=== PATIENT | male | born 1975 | race Caucasian/White ===

== ENCOUNTER → 2017-11-28 08:17 | Outpatient (CLI) | payer OTHER, SELFPAY ==
[2017-11-28 10:11] LABS: Absolute Lymphocyte Count 2.01 X10^3/ul (0.83-4.51); Absolute Neutrophil Count 3.9 X10^3/uL (2.0-7.7); Basophil# 0.02 X10^3/uL; Basophil% 0.3 % (0-1); Eosinophil# 0.13 X10^3/uL; Hematocrit 46.2 % (40-54); Hemoglobin 15.9 g/dl (13.0-16.5); Lymphocyte # 2.01 X10^3/ul (4.0); Lymphocyte % 30.8 % (19-41); Mean Corp Hgb Conc 34.4 g/gl (32-36); Mean Corpuscular Hgb 30.8 pg (27.0-32.0); Mean Corpuscular Volume 89.4 fL (80-94); Mean Platelet Vol. 9.5 fl (6.2-12.0); Monocyte# 0.42 X10^3/uL; Monocyte% 6.4 % (0-10); Neutrophil # 3.93 X10^3/uL (2.7-7.7); Neutrophil % 60.2 % (47-70); Platelet Count 197 K/mm3 (150-450); RBC Distribution Width CV 12.8 % (11.6-14.6); RBC Distribution Width SD 41.3 fl (35.1-43.9); Red Blood Count 5.17 M/mm3 (4.6-6.2); White Blood Count 6.5 K/mm3 (4.4-11.0)
[2017-11-28 10:15] LABS: POSITIVE COUNT NO; POSITIVE DIFFERENTIAL NO; POSITIVE MORPHOLOGY NO
[2017-11-28 10:22] LABS: Hemoglobin A1c 5.6 % (4.2-6.3)
[2017-11-28 10:30] LABS: ALB/GLOB Ratio 1.1 RATIO (0.9-2.4); AST(SGOT) 21 U/L (15-37); Alanine Aminotransfer ALT/SGPT 45 U/L (16-61); Albumin, Serum 3.8 g/dL (3.2-5.0); Alkaline Phosphatase 64 U/L (45-117); Anion Gap 10 (5-15); BUN 12 mg/dL (7-18); BUN/Creat Ratio 15.8 RATIO (10-20); Chloride 107 mmol/L (98-107); Cholesterol 192 mg/dL (200); Creatinine, Serum 0.76 mg/dL (0.70-1.30); EST Glomerular Filtration Rate 121 mL/min (>60); Est Glom Filt Rate - Afr Amer 146 mL/min (>60); Globulin 3.4 g/dL (2.2-4.2); Glucose 101 mg/dL (74-106); High Density Lipoprotein 20 mg/dL; PSA,Total - Annual Screen 1.92 ng/mL (0.00-4.00); Potassium 3.9 mmol/L (3.5-5.1); Protein, Total 7.2 g/dL (6.4-8.2); Sodium Level 142 mmol/L (136-145); T4 Total, Thyroxin 8.8 ug/dL (4.5-12.1); Thyroid Stim Hormone (TSH) 1.32 uIU/mL (0.358-3.74); Triglycerides 459 mg/dL
[2017-11-28 10:43] LABS: Vitamin B12 368 pg/mL (211-911)
== END ==
PROVIDERS: Family Provider Family Medicine; PCP Family Medicine; Referring Provider Physician Assistant; Visit Provider Physician Assistant
DX: E66.9 Obesity, unspecified (principal)
CPT/HCPCS: 36415; 80053; 80061; 82607; 83036; 84153; 84436; 84443; 85025; G0103

== ENCOUNTER → 2020-03-22 10:21 | Outpatient (CLI) | payer OTHER, SELFPAY ==
[2020-02-25 14:20] VITALS: BMI 33.0
--- NOTE | 2020-03-22 10:33 | STEWCON_ITS ---
Reason For Study: Chest Pain Stress Results Protocol: Brandt Protocol WITH DEFINITY Maximum Predicted HR: 178 bpm Target HR: 151 bpm % Maximum Predicted HR: 88 % DurationHeart Rate Stage (mm:ss) (bpm) BP Comment Baseline 80 126/84No Chest Pain; 4 ML Diluted Definity Brandt Protocol Stage I 3:00 108 134/72No Chest Pain Brandt Protocol Stage II 3:00 118 144/86No Chest Pain Brandt Protocol Stage III 3:00 142 170/76Mild Chest Pressure; Mild Dyspnea Brandt Protocol Stage IV 0:31 157 / Mild Chest Pressure; Moderate Dyspnea Recovery 94 130/70No Chest Pain Stress Duration: 9:31 mm:ss Maximum Stress HR: 157 bpm METS: 11 Baseline Echocardiogram Findings Stress Echo Wall motion Data Resting WM Intermediate WM Stress WM Resting Wall Motion Wall Motion Stress All segments Normal. All segments Hyperkinetic. Ejection Fraction 55 %. Ejection Fraction 70 %. Stress Results Heart rate response: Appropriate Blood pressure response: Normal resting blood pressure-appropriate response Arrhythmias: None Functional capacity: Good Stopped secondary to: Mild chest discomfort/dyspnea. EKG Data Baseline ECG: Normal sinus rhythm. Peak exercise ECG: Somatic/motion artifact with no obvious ECG changes. Symptoms with Stress The patient noted mild chest discomfort/pressure at peak exercise with subsequent spontaneous resolution in recovery. Interpretation Summary Contrast injection performed 1. Negative (adequate) stress echocardiogram Ordering Physician: Amelia Allen M.D. Referring Physician: Duke Unger Performed By: Patty Kraus RDCS
== END ==
PROVIDERS: PCP Family Medicine; Visit Provider Family Medicine
DX: R07.9 Chest pain, unspecified (principal)
CPT/HCPCS: 93017; 93350; Q9957; A4216; C8928

== ENCOUNTER → 2021-01-11 10:51 | Outpatient (CLI) | payer OTHER, SELFPAY | PROVIDERS: PCP Family Medicine; Visit Provider Family Medicine | DX: Z23 Encounter for immunization (principal) | CPT/HCPCS: 0004A; 91300 ==

== ENCOUNTER → 2021-12-15 | Outpatient (CLI) | payer OTHER, SELFPAY ==
--- NOTE | 2021-12-15 10:43 | RAD_ITS ---
STUDY: X-RAY CHEST REASON FOR EXAM: Male, 46 years old. CHRONIC COUGH TECHNIQUE: PA and lateral views of the chest. COMPARISON: 2016 FINDINGS: The lungs are clear and expanded. There is no demonstrated pleural abnormality. Normal size heart. Normal mediastinum and maria guadalupe. Normal visualized pulmonary arteries. Normal visualized aortic arch and descending thoracic aorta. Normal visualized thoracic spine. Normal visualized ribs, clavicles, and shoulders. There is no demonstrated abnormality of the visualized soft tissue structures of the upper abdomen. RAD/Chest PA and Lateral IMPRESSION: Normal x-ray examination of the chest. Electronically Signed: Chandana Obrien MD at 13:22 EDT ,
[2021-12-15 12:50] LABS: Erythrocyte Sedimentation Rate 7 mm/hr (0-20)
[2021-12-15 12:53] LABS: Absolute Lymphocyte Count 2.71 X10^3/uL (0.83-4.51); Absolute Neutrophil Count 5.8 X10^3/uL (2.0-7.7); Basophil# 0.06 X10^3/uL; Basophil% 0.6 % (0-1); Eosinophil# 0.14 X10^3/uL; Eosinophils% 1.5 % (0-5); Hematocrit 46.9 % (40-54); Hemoglobin 16.9 g/dL (13.0-16.5); Lymphocyte # 2.71 X10^3/ul (0.83-4.51); Mean Corpuscular Hgb 31.9 pg (27.0-32.0); Mean Corpuscular Volume 88.5 fL (80-94); Mean Platelet Vol. 9.5 fl (6.2-12.0); Monocyte# 0.65 X10^3/uL; NRBC Flagged by Analyzer 0 % (0-5); Neutrophil # 5.75 X10^3/uL (2.7-7.7); Neutrophil % 61.5 % (47-70); Platelet Count 278 K/mm3 (150-450); RBC Distribution Width CV 12.7 % (11.6-14.6); RBC Distribution Width SD 41.4 fl (35.1-43.9); White Blood Count 9.4 K/mm3 (4.4-11.0)
[2021-12-15 13:23] LABS: ALB/GLOB Ratio 1.2 RATIO (0.9-2.4); AST(SGOT) 28 U/L (15-37); Alanine Aminotransfer ALT/SGPT 49 U/L (16-61); Albumin, Serum 3.9 g/dL (3.2-5.0); Alkaline Phosphatase 74 U/L (45-117); Anion Gap 6 (5-15); BUN 11 mg/dL (7-18); BUN/Creat Ratio 13.6 RATIO (10-20); Chloride 105 mmol/L (98-107); Creatinine, Serum 0.81 mg/dL (0.70-1.30); EST Glomerular Filtration Rate 110 mL/min (>60); Est Glom Filt Rate - Afr Amer 133 mL/min (>60); Globulin 3.3 g/dL (2.2-4.2); Glucose 100 mg/dL (74-106); Potassium 4.1 mmol/L (3.5-5.1); Protein, Total 7.2 g/dL (6.4-8.2); Sodium Level 136 mmol/L (136-145)
== END | disposition home or self-care (01) ==
LOC: MTLAB 10:40
PROVIDERS: PCP Family Medicine; Referring Provider Family Medicine; Visit Provider Family Medicine
DX: R05.3 Chronic cough (principal)
CPT/HCPCS: 36415; 71046; 80053; 85025; 85652

== ENCOUNTER 2022-04-03 10:00 | Outpatient (RCR) | payer OTHER, SELFPAY | END 2022-04-10 23:59 | LOC: NS 10:00 | PROVIDERS: PCP Family Medicine; Visit Provider Family Medicine | DX: Z71.3 Dietary counseling and surveillance (principal); E66.9 Obesity, unspecified; Z68.34 Body mass index [BMI] 34.0-34.9, adult; G47.33 Obstructive sleep apnea (adult) (pediatric) | CPT/HCPCS: 97802 ==

== ENCOUNTER → 2022-05-08 | Outpatient (CLI) | payer OTHER, SELFPAY ==
--- NOTE | 2022-05-08 10:38 | PFTCOMP ---
COMPLETE PULMONARY FUNCTION TEST INTERPRETATION Brief HPI: Patient is a 46-year-old male, currently under the care of Dr. Moore, who presents to [facility] for complete pulmonary function tests secondary to diagnosis of chronic cough. Respiratory therapist reports good effort and reproducible results. Interpretation: Forced expiration spirometry shows no large airways obstructive ventilatory defect with an FEV1 of 95% predicted. There is no significant bronchodilator response by strict ATS criteria. Spirograms are of poor quality and do not plateau after 3 to 5 seconds of exhalation, likely underestimating FVC. The respiratory flow volume loop shows a normal pattern. Lung volumes by body plethysmography show a normal total lung capacity at 6.58 L, 102% predicted. All other lung volumes are within normal limits. Diffusion capacity by carbon monoxide is normal at 115% predicted. The airway resistance is normal. No previous pulmonary function tests were available for review. Impression: Grossly normal pulmonary function testing. Consider bronchoprovocation if asthma is suspected as an etiology to chronic cough.
== END | disposition home or self-care (01) ==
LOC: PSN 08:30
PROVIDERS: PCP Family Medicine; Visit Provider Family Medicine
DX: R05.3 Chronic cough (principal)
CPT/HCPCS: 94060; 94726; 94729

== ENCOUNTER → 2022-12-24 | Outpatient (CLI) | payer OTHER, SELFPAY ==
[2022-12-24 15:36] LABS: Absolute Lymphocyte Count 2.34 X10^3/uL (0.83-4.51); Absolute Neutrophil Count 3.4 X10^3/uL (2.0-7.7); Basophil# 0.04 X10^3/uL; Basophil% 0.6 % (0-1); Eosinophil# 0.15 X10^3/uL; Eosinophils% 2.2 % (0-5); Hemoglobin 16.4 g/dL (13.0-16.5); Lymphocyte # 2.34 X10^3/ul (0.83-4.51); Lymphocyte % 34.7 % (19-41); Mean Corp Hgb Conc 34.2 g/dL (32-36); Mean Corpuscular Hgb 30.6 pg (27.0-32.0); Mean Corpuscular Volume 89.6 fL (80-94); Mean Platelet Vol. 9.2 fl (6.2-12.0); Monocyte# 0.81 X10^3/uL; NRBC Flagged by Analyzer 0 % (0-5); Neutrophil # 3.37 X10^3/uL (2.7-7.7); Neutrophil % 49.9 % (47-70); Platelet Count 230 K/mm3 (150-450); RBC Distribution Width CV 12.7 % (11.6-14.6); RBC Distribution Width SD 41.4 fl (35.1-43.9); Red Blood Count 5.36 M/mm3 (4.6-6.2); White Blood Count 6.8 K/mm3 (4.4-11.0)
[2022-12-24 15:47] LABS: Erythrocyte Sedimentation Rate 12 mm/hr (0-20)
[2022-12-24 15:52] LABS: Rheumatoid Factor < 10.0 IU/mL (<15)
[2022-12-26 12:09] LABS: ANTINUCLEAR ANTIBODIES DIRECT Negative (Negative)
== END | disposition home or self-care (01) ==
LOC: MTLAB 13:08
PROVIDERS: PCP Family Medicine; Referring Provider Family Medicine; Visit Provider Family Medicine
DX: L30.9 Dermatitis, unspecified (principal)
CPT/HCPCS: 36415; 85025; 85652; 86038; 86140; 86431

== ENCOUNTER → 2023-08-22 | Outpatient (CLI) | payer OTHER, SELFPAY ==
[2023-08-22 10:04] LABS: Absolute Lymphocyte Count 2.35 X10^3/uL (0.83-4.51); Absolute Neutrophil Count 4.3 X10^3/uL (2.0-7.7); Basophil# 0.06 X10^3/uL; Basophil% 0.8 % (0-1); Eosinophil# 0.13 X10^3/uL; Eosinophils% 1.8 % (0-5); Hemoglobin 16.3 g/dL (13.0-16.5); Lymphocyte # 2.35 X10^3/ul (0.83-4.51); Lymphocyte % 32.2 % (19-41); Mean Corp Hgb Conc 34.7 g/dL (32-36); Mean Corpuscular Volume 86.4 fL (80-94); Mean Platelet Vol. 9.1 fl (6.2-12.0); Monocyte# 0.45 X10^3/uL; Monocyte% 6.2 % (0-10); NRBC Flagged by Analyzer 0 % (0-5); Neutrophil # 4.28 X10^3/uL (2.7-7.7); Neutrophil % 58.6 % (47-70); Platelet Count 249 K/mm3 (150-450); RBC Distribution Width CV 12.7 % (11.6-14.6); RBC Distribution Width SD 39.4 fl (35.1-43.9); Red Blood Count 5.44 M/mm3 (4.6-6.2); White Blood Count 7.3 K/mm3 (4.4-11.0)
[2023-08-22 10:24] LABS: ALB/GLOB Ratio 1.1 RATIO (0.9-2.4); AST(SGOT) 24 U/L (15-37); Alanine Aminotransfer ALT/SGPT 45 U/L (16-61); Albumin, Serum 3.7 g/dL (3.2-5.0); Alkaline Phosphatase 92 U/L (45-117); Anion Gap 5 (5-15); BUN 8 mg/dL (7-18); BUN/Creat Ratio 9.1 RATIO (10-20); Calcium,Total 9.6 mg/dL (8.5-10.1); Chloride 106 mmol/L (98-107); Cholesterol 213 mg/dL (200); Creatinine, Serum 0.88 mg/dL (0.70-1.30); EST Glomerular Filtration Rate 99 mL/min (>60); Est Glom Filt Rate - Afr Amer 120 mL/min (>60); Globulin 3.4 g/dL (2.2-4.2); Glucose 131 mg/dL (74-106); High Density Lipoprotein 28 mg/dL; Potassium 4.2 mmol/L (3.5-5.1); Protein, Total 7.1 g/dL (6.4-8.2); Sodium Level 136 mmol/L (136-145); Triglycerides 236 mg/dL; Very Low Density Lipoprotein 47 mg/dL (5-40)
[2023-08-26 19:13] LABS: Hemoglobin A1c 5.8 % (3.8-5.6)
== END | disposition home or self-care (01) ==
LOC: MFPLAB 09:12
PROVIDERS: PCP Family Medicine; Visit Provider Family Medicine
DX: R73.09 Other abnormal glucose (principal); I10 Essential (primary) hypertension; E66.9 Obesity, unspecified
CPT/HCPCS: 36415; 80053; 80061; 83036; 85025

== ENCOUNTER → 2023-12-24 | Outpatient (CLI) | payer OTHER, SELFPAY ==
--- NOTE | 2023-12-24 15:50 | RAD_ITS ---
INDICATION: radiculopathy left arm pain, numbness EXAMINATION/TECHNIQUE: X-RAY - XR Spine Cervical 4 or 5 Views COMPARISON: No relevant prior comparison study available FINDINGS: The vertebral bodies are normal in height. No definite fracture demonstrated. No subluxation. C1-2 alignment is maintained. Straightening of the normal curvature. Mild disc space narrowing with posterior osteophytes C5-6 with possibly slight encroachment on the left neural foramen. Prevertebral soft tissues appear unremarkable. RAD/Cerv Spine 4 or 5 Views IMPRESSION: No evidence of fracture or subluxation. Mild degenerative discogenic disease C5-C6 with slight left neural foraminal encroachment. MRI may be helpful for further evaluation. Electronically Signed: Lauren Cruz MD at 8:17 EST ,
== END | disposition home or self-care (01) ==
LOC: MTRAD 15:46
PROVIDERS: PCP Family Medicine; Referring Provider Family Medicine; Visit Provider Family Medicine
DX: M54.10 Radiculopathy, site unspecified (principal)
CPT/HCPCS: 72050

== ENCOUNTER → 2024-01-15 | Outpatient (CLI) | payer OTHER, SELFPAY ==
--- NOTE | 2024-01-15 12:49 | NEURO_ITS ---
NCS and/or EMG Patient Report Ordering Doctor: Gavino Moore DATE OF SERVICE: 01/15/24 Andrew presents with complaints of in the wrist bilaterally, worse on the left side. He reports intermittent numbness. Electrodiagnostic findings: Median motor nerve demonstrates prolonged latency bilaterally with normal amplitudes and reduced conduction velocities. Ulnar motor response is within normal limits bilaterally. Normal median and ulnar F?waves. Prolonged left and right median sensory latencies at the wrist. N ormal ulnar and radial sensory responses. Needle EMG testing was performed upper limbs. All muscles tested showed no evidence of denervation with normal motor unit action potentials Electrodiagnostic impression: This is an abnormal study in the upper limbs 1. Electrodiagnostic findings suggestive of bilateral median mononeuropathy. This is consistent with a mild right carpal tunnel syndrome and a moderate left carpal tunnel syndrome. Multi Select Codes Neurology Neurology Interp Codes: 94465-46 Musc test done w/n test comp (interp) (2) and 03473-25 Nrv cndj test 9-10 studies (interp)
== END | disposition home or self-care (01) ==
LOC: PSN 09:54
PROVIDERS: PCP Family Medicine; Referring Provider Family Medicine; Visit Provider Family Medicine
DX: M54.10 Radiculopathy, site unspecified (principal)
CPT/HCPCS: 95886; 95911

== ENCOUNTER → 2024-01-20 | Outpatient (CLI) | payer OTHER, SELFPAY ==
--- NOTE | 2024-01-20 09:30 | MRI_ITS ---
HISTORY: L and gt; R radicular pain; hx of remote neck fracture and surgery; co. TECHNIQUE: Multiplanar and multisequence MR images of the cervical spine were obtained without contrast. 247 images. COMPARISON: XR 01/02/2024. FINDINGS: VERTEBRAE: Vertebral body heights maintained. Mild degenerative changes. No significant bone marrow signal abnormality. VERTEBRAL ALIGNMENT: Straightening of the cervical lordosis without anterior or posterior subluxation. SPINAL CORD: Cervical cord signal and morphology within normal limits. SOFT TISSUES: No prevertebral fluid collection. INTERVERTEBRAL DISCS: C2-3: Mild posterior disc bulge osteophyte complex with uncovertebral and facet arthropathy resulting in minimal narrowing of the thecal sac and mild left foraminal narrowing C3-4: No significant posterior disc protrusion, central canal stenosis, or foraminal narrowing. C4-5, C5-6: Mild posterior disc bulge osteophyte complexes with uncovertebral and facet arthropathy resulting in mild central canal stenosis and bilateral foraminal narrowing. C6-7: Mild posterior disc protrusion with annular fissure resulting in mild central canal stenosis. No significant foraminal narrowing. C7-T1: No significant posterior disc protrusion, central canal stenosis, or foraminal narrowing. MRI/Spine Cervical (Routine) IMPRESSION: Mild degenerative disc disease of the cervical spine as above. Electronically Signed: Barbara Power MD at 13:27 EST ,
== END | disposition home or self-care (01) ==
PROVIDERS: PCP Family Medicine; Referring Provider Family Medicine; Visit Provider Family Medicine
DX: M54.10 Radiculopathy, site unspecified (principal); Z87.81 Personal history of (healed) traumatic fracture
CPT/HCPCS: 72141

== ENCOUNTER → 2024-04-03 | Outpatient (CLI) | payer OTHER, SELFPAY ==
--- NOTE | 2024-04-03 08:04 | ECHOCS_ITS ---
Reason For Study : MINE Procedure This was a 2D Doppler, Color Flow transthoracic echocardiogram. The study was technically difficult. Unable to obtain RV strain due to suboptimal images. Exam performed in department. Left Ventricle Normal LV size. The estimated ejection fraction is 60 %. No evidence for diastolic dysfunction. No regional wall motion abnormalities noted. Right Ventricle Normal RV size. Normal systolic function. Atria The left and right atria are normal. Mitral Valve The mitral valve is structurally normal. No prolapse or stenosis seen. Tricuspid Valve Normal tricuspid valve. Trivial tricuspid valve insufficiency. Unable to estimate RV systolic pressure due to insufficient tricuspid regurgitant envelope. Aortic Valve Trisinus/trileaflet aortic valve. Pulmonic Valve Normal pulmonic valve. Trivial pulmonic valve insufficiency. Great Vessels Normal sized aortic root. Pericardium/Pleural No pericardial effusion. Medication 22 gauge I.V. with prn adaptor inserted into right arm. Diluted definity 2ml given slow IV push to enhance endocardial definition. MMode/2D Measurements & Calculations Ao root diam: 3.3 cm EDV(sp4-el): 124.7 ml EDV(MOD-sp4): 119.2 ml ESV(MOD-sp4): 47.1 ml ESV(sp4-el): 47.5 ml LA A4 area: 16.9 cm?? FS: 31.3 % IVSd: 1.04 cm LAV(MOD-sp2): 36.3 ml LAV(MOD-bp): 42.4 ml LA dimension(2D): 3.6 cm LVAd ap4: 35.9 cm?? LAV(MOD-sp4): 41.5 ml LAV(MOD-bp) Indexed: 19.9 ml/m?? LVIDd: 4.8 cm LVLd ap4: 8.7 cm LVIDs: 3.3 cm LVAs ap4: 20.3 cm?? LVPWd: 1.06 cm LVLs ap4: 7.4 cm RVDd: 3.3 cm RA A4 area: 15.2 cm?? Doppler Measurements & Calculations Ao max P.3 mmHg Ao V2 max: 103.9 cm/sec E/E' med: 8.6 E/E' lat: 7.7 LV V1 max: 90.6 cm/sec LV V1 max P.3 mmHg Lat Peak E' Bandar: 10.8 cm/sec Med Peak E' Bandar: 9.7 cm/sec MV A max bandar: 71.5 cm/sec MV E max bandar: 83.1 cm/sec MV dec time: 0.25 sec PA V2 max: 121.1 cm/sec PA max P.9 mmHg TR max bandar: 150.6 cm/sec TR max P.1 mmHg Other Measurements & Calculations EF(MOD-sp4): 60.5 % EF(sp4-el): 61.9 % MV E/A: 1.16 SV(MOD-sp4): 72.1 ml SV(sp4-el): 77.2 ml TAPSE: 1.67 cm Conclusions Contrast injection was performed. The estimated ejection fraction is 60 %. No evidence for diastolic dysfunction. Structually normal valves. Ordering Physician: Gianfranco Clement V Referring Physician: PEMA CANTRELL Performed By: Patty Kraus RDCS Electronically signed by: Kaylyn Chin MD 04/03/2024, 4: 26 PM
== END | disposition home or self-care (01) ==
PROVIDERS: PCP Family Medicine; Referring Provider Internal Medicine Pulmonary Disease; Visit Provider Internal Medicine Pulmonary Disease
DX: G47.33 Obstructive sleep apnea (adult) (pediatric) (principal); J45.40 Moderate persistent asthma, uncomplicated
CPT/HCPCS: 93306; Q9957; A4216; C8929

== ENCOUNTER → 2024-04-24 | Outpatient (CLI) | payer OTHER, SELFPAY ==
[2024-04-24 19:00] LABS: ALB/GLOB Ratio 1.5 RATIO (0.9-2.4); AST(SGOT) 37 U/L (<=37); Alanine Aminotransfer ALT/SGPT 45 U/L (<=46); Albumin, Serum 4.2 g/dL (3.5-5.0); Alkaline Phosphatase 89 U/L (40-129); Anion Gap 13 (5-15); BUN 10 mg/dL (4-19); BUN/Creat Ratio 13.4 RATIO (10-20); Calcium,Total 9.7 mg/dL (7.6-11.0); Carbon Dioxide 22.2 mmol/L (21.0-32.0); Chloride 102 mmol/L (98-108); Creatinine, Serum 0.74 mg/dL (0.70-1.20); EST Glomerular Filtration Rate 113 (>60); Globulin 2.7 g/dL (2.2-4.2); Glucose 144 mg/dL (70-99); Protein, Total 6.8 g/dL (5.9-8.4); Sodium Level 137 mmol/L (133-145); Total Bilirubin 0.26 mg/dL (0.00-1.30)
[2024-04-24 19:08] LABS: Hemoglobin A1c 6.6 % (<=5.6)
[2024-04-25 01:01] LABS: Cholesterol 192 mg/dL (<=200); High Density Lipoprotein 20 mg/dL; Low Density Lipoprotein Calc. 96 mg/dL; Triglycerides 382 mg/dL; Very Low Density Lipoprotein 76 mg/dL (5-40); cholesterol:hdl ratio screen 9.65
== END | disposition home or self-care (01) ==
LOC: MFPLAB 13:55
PROVIDERS: PCP Family Medicine; Referring Provider Family Medicine; Visit Provider Family Medicine
DX: R73.03 Prediabetes (principal)
CPT/HCPCS: 36415; 80053; 80061; 83036; 84443

== ENCOUNTER → 2024-04-27 | Outpatient (CLI) | payer OTHER, SELFPAY ==
--- NOTE | 2024-04-27 08:55 | RAD_ITS ---
PROCEDURE: CHEST PA AND LATERAL 04/27/2024 REASON FOR EXAM: COUGH TECHNIQUE: Frontal and lateral views of the chest. COMPARISON: Chest x-ray of 12/15/2021. FINDINGS: The heart size is normal. The mediastinal contour is unremarkable. The lungs are clear. The bones are unremarkable. RAD/Chest PA and Lateral IMPRESSION: No evidence of acute cardiopulmonary disease. Negative examination. Reading Location: [id number]
== END | disposition home or self-care (01) ==
LOC: MTRAD 08:50
PROVIDERS: PCP Family Medicine; Referring Provider Family Medicine; Visit Provider Family Medicine
DX: R05.3 Chronic cough (principal)
CPT/HCPCS: 71046

== ENCOUNTER 2024-05-26 14:30 | Outpatient (RCR) | payer OTHER, SELFPAY ==
--- NOTE | 2024-03-05 07:58 | HP.OTEVAL ---
Patient's Visit Information Visit Information Visit Information: CHRISTINA FLYNN is a 48 year old M, referred to Occupational Therapy by ELHAM Giron, with a diagnosis of left CTS. Date of Evaluation: 03/04/24 Occupational Therapist: ASHLEIGH Ibarra/Celso, CHT Subjective Subjective: This 48-year-old male was seen for OT eval with dx with left CTR pt states he has noticed symptoms for a while and feels he needs to work on something to decrease them. 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 pt is left-handed pt states he feels he is dropping items- pt states he does not feel the numbness of CTS but has pian on ulnar side of his wrist and he is dropping objects. 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 with ADls by d/c Goal:: Pt will demo understanding of joint protection and ergonomics when performing BADLs and IADLs by d/c Pt will demo understanding of adaptive Equipment use to decrease stress on joints to allow pt to perform BADSL and IADLS at GINA level. Goal:: Pt will demo understanding of using supportive bracing 80% of workday/ADLS to decrease stress on tendon origin to allow healing and decrease pain by end of 2nd session. Rehabilitation General Assessment: pt demo with positive symptoms of CTS and limited use of left UE due to pain and weakness. Pt demo need for skilled OT services 2-3x week for 4 weeks. Therapist ed. pt on soft tissue mobilization to decrease forearm tightness- to cont. wearing wrist brace at night and ed. pt on median nerve glides. Pt demo understanding and agree to POC. Rehabilitation Potential: Good Anticipated Interventions Anticipated Interventions: A/AAROM/PROM, Strengthening, Triggerpoint Release, Modalities, Orthoses, Joint Protection/Energy Conservation, Ergonomic Education, Education re assistive Equipment, Education re Diagnosis and Home Program Visit Plan Frequency: 2-3x /Week Duration: 4 Weeks TEXT: Thank you for the opportunity to evaluate your patient. For Medicare and Medicare HMO plans, please review the plan of care and approve it. It will need to be FAXED BACK to us at [phone] for Medicare purposes. Please let me know if there are questions or concerns regarding this plan of care. Physician Signature: Date:
--- NOTE | 2024-09-09 15:04 | HP.OT.NRP ---
Patient Information Patient Information: CHRISTINA FLYNN was seen in my office for initial evaluation on 03/04/24. The following Plan of Care was established for this patient: POC Established Initial Frequency: 2-3x /Week Initial Duration: 4 Weeks Plan: every 2 weeks PB and trigger point release of bilateral forearm Anticipated Interventions Anticipated Interventions: A/AAROM/PROM, Strengthening, Triggerpoint Release, Modalities, Orthoses, Joint Protection/Energy Conservation, Ergonomic Education, Education re assistive Equipment, Education re Diagnosis and Home Program Last Seen Last Seen: This patient was last seen in our office 05/26/24. Pertinent comments regarding their Occupational therapy will appear below: no further apts have been scheduled and due to time lapse in services pt is d/c. At this point I will be discontinuing this patient from occupational therapy. I would be happy to see this patient again in the future if found appropriate by the physician. Thank you! Otilia Riddle, OTR/L, CHT
== END 2024-05-26 19:00 | disposition home or self-care (01) ==
LOC: OT 14:30
PROVIDERS: PCP Family Medicine; Referring Provider Student in an Organized Health Care Education/Training Program; Visit Provider Student in an Organized Health Care Education/Training Program
DX: G56.02 Carpal tunnel syndrome, left upper limb (principal)
CPT/HCPCS: 97035; 97110; 97140; 97166; 97530

== ENCOUNTER → 2024-09-11 | Outpatient (CLI) | payer OTHER, SELFPAY | END | disposition home or self-care (01) | LOC: RAD 15:41 | PROVIDERS: PCP Family Medicine; Referring Provider Surgery Plastic and Reconstructive Surgery; Visit Provider Surgery Plastic and Reconstructive Surgery | DX: M25.60 Stiffness of unspecified joint, not elsewhere classified (principal) | CPT/HCPCS: 73140 ==

== ENCOUNTER → 2024-11-23 | Outpatient (CLI) | payer OTHER, SELFPAY ==
[2024-11-23 17:50] LABS: Hematocrit 43.7 % (40-54); Hemoglobin 15.2 g/dL (13.0-16.5); Immature Granulocytes Count 0.020 X10^3/uL (0.0-0.0); Mean Corp Hgb Conc 34.8 g/dL (32-36); Mean Corpuscular Volume 88.5 fL (80-94); Mean Platelet Vol. 9.4 fl (6.2-12.0); NRBC Flagged by Analyzer 0 % (0-5); Platelet Count 251 K/mm3 (150-450); RBC Distribution Width CV 12.5 % (11.6-14.6); RBC Distribution Width SD 40.6 fl (35.1-43.9); Red Blood Count 4.94 M/mm3 (4.6-6.2); White Blood Count 8.5 K/mm3 (4.4-11.0)
[2024-11-23 18:49] LABS: AST(SGOT) 29 U/L (<=37); Alanine Aminotransfer ALT/SGPT 38 U/L (<=46); Albumin, Serum 4.3 g/dL (3.5-5.0); Alkaline Phosphatase 77 U/L (40-129); Anion Gap 12 (5-15); BUN 16 mg/dL (4-19); BUN/Creat Ratio 19.6 RATIO (10-20); CRP 5.11 mg/L (0.0-3.0); Calcium,Total 10.1 mg/dL (7.6-11.0); Carbon Dioxide 22.7 mmol/L (21.0-32.0); Chloride 103 mmol/L (98-108); Cholesterol 216 mg/dL (<=200); Globulin 2.6 g/dL (2.2-4.2); Glucose 104 mg/dL (70-99); Hepatitis B Surface Antigen Nonreactive (Nonreactive); Hepatitis C Antibody Nonreactive (Nonreactive); Low Density Lipoprotein Calc. 111 mg/dL; Potassium 3.8 mmol/L (3.3-5.1); Triglycerides 376 mg/dL; Very Low Density Lipoprotein 75 mg/dL (5-40); cholesterol:hdl ratio screen 7.20
[2024-11-25 14:09] LABS: ANTINUCLEAR ANTIBODIES DIRECT Negative (Negative)
== END | disposition home or self-care (01) ==
LOC: MTLAB 15:59
PROVIDERS: PCP Family Medicine; Referring Provider Family Medicine; Visit Provider Family Medicine
DX: I10 Essential (primary) hypertension (principal); M06.4 Inflammatory polyarthropathy; E11.9 Type 2 diabetes mellitus without complications; M19.041 Primary osteoarthritis, right hand; M18.0 Bilateral primary osteoarthritis of first carpometacarpal joints; G56.03 Carpal tunnel syndrome, bilateral upper limbs
CPT/HCPCS: 36415; 80053; 80061; 85025; 85652; 86038; 86140; 86200; 86431; 86706; 86803; 87340